=== PATIENT | female | born 1940 | race Caucasian/White ===

== ENCOUNTER 2021-04-25 22:21 | Inpatient (IN) | payer MEDICARE, OTHER ==
[~2021-04-25] VITALS: Ht 165.1 cm; Wt 79.5 kg
[~2021-04-25 22:21] MED LIST: LISI-716; WARF1TAB
[2021-04-26 00:03] LABS: Basophils # (auto) 0.1 10 ^3/uL (0-0.2); Basophils % (auto) 0.5 % (0.0-2.0); Eosinophils # (auto) 0.1 10 ^3/uL (0-0.8); Eosinophils % (auto) 1.1 % (0.0-7.0); Hematocrit 45.9 % (36.0-46.0); Hemoglobin 15.3 g/dL (12.2-16.2); Lymphocytes # (auto) 2.5 10 ^3/uL (0.4-5.4); Lymphocytes % (auto) 21.9 % (10.0-50.0); Mean Corpuscular Hemoglobin 30.5 pg (28.0-32.0); Mean Corpuscular Hgb Conc. 33.4 g/dL (32.0-36.0); Mean Corpuscular Volume 91.4 fL (80.0-100.0); Monocytes # (auto) 0.7 10 ^3/uL (0-1.3); Monocytes % (auto) 6.2 % (0.0-12.0); Neutrophils # (auto) 8.1 10 ^3/uL (1.6-8.6); Neutrophils % (auto) 70.3 % (37.0-80.0); Nucleated Red Blood Cells % 0.1 %; Red Blood Cells 5.02 10^6/uL (4.0-5.20); Red Cell Distribution Width 13.5 % (11.8-14.3); White Blood Cell 11.5 10^3/uL (4.4-10.8)
[2021-04-26 00:13] LABS: Albumin 3.8 g/dL (3.4-5.0); Calcium 8.7 mg/dL (8.5-10.1); Potassium 3.6 mmol/L (3.5-5.1)
[2021-04-26 00:18] LABS: BUN/Creatinine Ratio 25.3; Bilirubin, Total 0.4 mg/dL (0.2-1.0); Total Protein 7.2 g/dL (6.4-8.2)
[2021-04-26 01:36] LABS: INR 2.45 (0.9-1.15)
[2021-04-26] MEDS ORDERED: DEXTROSE (50%) 50ML SYRG IV PRN ×2 (06:15→13:00)
[2021-04-26] MEDS ORDERED: DOCUSATE SOD 100 MG CAP PO PRN ×2 (06:15→13:00)
[2021-04-26] MEDS ORDERED: HYDROcodone-ACET 5/325MG TAB PO PRN ×2 (06:15→13:00)
[2021-04-26] MEDS ORDERED: ACETAMINOPHEN 325 MG TAB PO PRN ×2 (06:15→13:00)
[2021-04-26] MEDS ORDERED: hydrALAZINE HCL 20 MG/ML VL IV PRN (06:15)
[2021-04-26] MEDS ORDERED: ONDANSETRON HCL 4 MG/2 ML VIAL IV PRN ×2 (06:15→13:00)
[2021-04-26] MEDS ORDERED: InsuLIN REG 1unit/0.01ml Soln (100units/ml) SC SCH ×2 (07:00→22:00)
[2021-04-26] MEDS ORDERED: ACCU-CHEK COMFORT CURVE STRIP VI SCH (07:00)
[2021-04-26 07:15] LABS: Basophils # (auto) 0 10 ^3/uL (0-0.2); Basophils % (auto) 0.2 % (0.0-2.0); Eosinophils # (auto) 0 10 ^3/uL (0-0.8); Hemoglobin 13.2 g/dL (12.2-16.2); Lymphocytes % (auto) 7.7 % (10.0-50.0); Mean Corpuscular Hemoglobin 30.5 pg (28.0-32.0); Mean Corpuscular Volume 92.6 fL (80.0-100.0); Monocytes # (auto) 0.5 10 ^3/uL (0-1.3); Neutrophils # (auto) 11.6 10 ^3/uL (1.6-8.6); Neutrophils % (auto) 88.1 % (37.0-80.0); Red Blood Cells 4.32 10^6/uL (4.0-5.20); Red Cell Distribution Width 13.4 % (11.8-14.3); White Blood Cell 13.1 10^3/uL (4.4-10.8)
[2021-04-26 07:30] LABS: Albumin 3.3 g/dL (3.4-5.0); Potassium 4.3 mmol/L (3.5-5.1)
[2021-04-26 07:36] LABS: BUN/Creatinine Ratio 24.1; Bilirubin, Total 0.6 mg/dL (0.2-1.0); Total Protein 6.2 g/dL (6.4-8.2)
[2021-04-26] MEDS ORDERED: MULTIPLE VITAMIN TAB PO SCH (10:00)
[2021-04-26] MEDS: ASCORBIC ACID 500 MG TAB PO SCH ×2 (10:00→21:28)
[2021-04-26] MEDS: ENOXAPARIN SOD 40 MG/0.4 ML SYRINGE SC SCH (10:00)
[2021-04-26] MEDS ORDERED: ZINC SULFATE 220mg CAP or TAB PO SCH (10:00)
[2021-04-26] MEDS: FAMOTIDINE (10MG/ML) 2ML VL IV SCH (10:47)
[2021-04-26] MEDS ORDERED: MORPHINE SULFATE INJECTION 2 MG/ML SYRG IV PRN ×2 (13:00)
[2021-04-26] MEDS ORDERED: NITROGLYCERIN 0.4 MG SL TAB SL PRN (13:00)
[2021-04-26] MEDS ORDERED: HYDROmorphone HCL 2 MG/ML VL IV PRN (13:00)
[2021-04-26 14:31] LABS: Cholesterol 149 mg/dL (< 200)
[2021-04-26 14:34] LABS: HDL Cholesterol 64 mg/dL (40-59); LDL Cholesterol 70 mg/dL (< 100); Triglycerides 107 mg/dL (< 150)
[2021-04-26] MEDS: SOD CHL 0.45% 1,000 ML IV SCH (14:46)
[2021-04-26] MEDS: SODIUM CHLOR 0.9% PF (SALINE LOCK) 10ML VIAL/SYR IV SCH ×2 (14:46→21:29)
[2021-04-26] MEDS: ACCU-CHEK COMFORT CURVE STRIP VI SCH (18:38)
[2021-04-26] MEDS: InsuLIN REG 1unit/0.01ml Soln (100units/ml) SC SCH (21:28)
[2021-04-27] MEDS: InsuLIN REG 1unit/0.01ml Soln (100units/ml) SC SCH ×4 (01:42→18:00)
[2021-04-27 04:06] VITALS: BP 134/86
[2021-04-27] MEDS: SOD CHL 0.45% 1,000 ML IV SCH ×2 (05:40→19:55)
[2021-04-27] MEDS: ACCU-CHEK COMFORT CURVE STRIP VI SCH ×4 (06:01→17:59)
[2021-04-27] MEDS: SODIUM CHLOR 0.9% PF (SALINE LOCK) 10ML VIAL/SYR IV SCH ×3 (06:01→21:42)
[2021-04-27] MEDS ORDERED: DONE1TAB88 PO (06:08)
[2021-04-27] MEDS ORDERED: TRAM50TA2 PO (06:08)
[2021-04-27] MEDS ORDERED: LOVA40TA72 PO (06:08)
[2021-04-27] MEDS ORDERED: AMLO-489 PO (06:08)
[2021-04-27] MEDS ORDERED: MEMA1TAB5 PO (06:08)
[2021-04-27] MEDS ORDERED: LATA0.0019 OP (06:08)
[2021-04-27] MEDS ORDERED: WARF3TAB22 PO (06:08)
[2021-04-27 08:48] LABS: Basophils # (auto) 0 10 ^3/uL (0-0.2); Basophils % (auto) 0.3 % (0.0-2.0); Eosinophils # (auto) 0 10 ^3/uL (0-0.8); Eosinophils % (auto) 0.2 % (0.0-7.0); Hematocrit 37.5 % (36.0-46.0); Hemoglobin 12.4 g/dL (12.2-16.2); Lymphocytes % (auto) 14.6 % (10.0-50.0); Mean Corpuscular Hemoglobin 30.6 pg (28.0-32.0); Mean Corpuscular Volume 92.8 fL (80.0-100.0); Monocytes # (auto) 1.1 10 ^3/uL (0-1.3); Monocytes % (auto) 8.5 % (0.0-12.0); Neutrophils # (auto) 10.3 10 ^3/uL (1.6-8.6); Neutrophils % (auto) 76.4 % (37.0-80.0); Nucleated Red Blood Cells % 0.1 %; Red Blood Cells 4.04 10^6/uL (4.0-5.20); Red Cell Distribution Width 13.7 % (11.8-14.3); White Blood Cell 13.4 10^3/uL (4.4-10.8)
[2021-04-27 08:50] VITALS: BP 135/88
[2021-04-27 09:02] LABS: Potassium 3.8 mmol/L (3.5-5.1)
[2021-04-27 09:12] LABS: BUN/Creatinine Ratio 33.3; Bilirubin, Total 0.7 mg/dL (0.2-1.0); Total Protein 6.2 g/dL (6.4-8.2)
[2021-04-27] MEDS: ENOXAPARIN SOD 40 MG/0.4 ML SYRINGE SC SCH (10:00)
[2021-04-27] MEDS ORDERED: LISINOPRIL 10 MG TAB PO SCH (10:00)
[2021-04-27] MEDS: FAMOTIDINE (10MG/ML) 2ML VL IV SCH (10:42)
[2021-04-27 12:51] VITALS: BP 152/70
[2021-04-27 17:00] VITALS: BP 123/64
[2021-04-27] MEDS: MEMANTINE HCL 5 MG TAB PO SCH (21:42)
[2021-04-27] MEDS: DONEPEZIL HYDROCHLORIDE 5 MG TAB PO SCH (21:42)
[2021-04-27 22:00] VITALS: BP 115/52
[2021-04-28] MEDS: ACCU-CHEK COMFORT CURVE STRIP VI SCH ×4 (00:21→17:37)
[2021-04-28] MEDS: InsuLIN REG 1unit/0.01ml Soln (100units/ml) SC SCH ×4 (00:21→17:37)
[2021-04-28 04:50] VITALS: BP 148/55
[2021-04-28] MEDS: SODIUM CHLOR 0.9% PF (SALINE LOCK) 10ML VIAL/SYR IV SCH ×3 (06:02→21:05)
[2021-04-28 07:53] LABS: Basophils # (auto) 0.3 10 ^3/uL (0-0.2); Basophils % (auto) 2.3 % (0.0-2.0); Eosinophils # (auto) 0.4 10 ^3/uL (0-0.8); Eosinophils % (auto) 3.4 % (0.0-7.0); Hematocrit 32.6 % (36.0-46.0); Hemoglobin 10.8 g/dL (12.2-16.2); Lymphocytes # (auto) 1.9 10 ^3/uL (0.4-5.4); Mean Corpuscular Hemoglobin 30.5 pg (28.0-32.0); Mean Corpuscular Hgb Conc. 33.1 g/dL (32.0-36.0); Mean Corpuscular Volume 92.1 fL (80.0-100.0); Monocytes # (auto) 0.6 10 ^3/uL (0-1.3); Monocytes % (auto) 5.2 % (0.0-12.0); Neutrophils # (auto) 8.6 10 ^3/uL (1.6-8.6); Neutrophils % (auto) 73.1 % (37.0-80.0); Nucleated Red Blood Cells % 0.1 %; Red Blood Cells 3.54 10^6/uL (4.0-5.20); Red Cell Distribution Width 13.6 % (11.8-14.3); White Blood Cell 11.8 10^3/uL (4.4-10.8)
[2021-04-28 08:14] LABS: Albumin 2.7 g/dL (3.4-5.0); Calcium 7.8 mg/dL (8.5-10.1); Potassium 3.9 mmol/L (3.5-5.1)
[2021-04-28 08:18] LABS: BUN/Creatinine Ratio 42.7; Bilirubin, Total 0.9 mg/dL (0.2-1.0); Total Protein 5.6 g/dL (6.4-8.2)
[2021-04-28] MEDS: ENOXAPARIN SOD 40 MG/0.4 ML SYRINGE SC SCH (09:10)
[2021-04-28] MEDS: MEMANTINE HCL 5 MG TAB PO SCH ×2 (09:11→21:07)
[2021-04-28] MEDS: FAMOTIDINE (10MG/ML) 2ML VL IV SCH (09:11)
[2021-04-28] MEDS ORDERED: amLODIPine BESYLATE 5 MG TAB PO SCH (10:00)
[2021-04-28] MEDS: SOD CHL 0.45% 1,000 ML IV SCH (15:00)
[2021-04-28 17:00] VITALS: BP 113/74
[2021-04-28 17:08] VITALS: BP 100/45
[2021-04-28] MEDS: DONEPEZIL HYDROCHLORIDE 5 MG TAB PO SCH (21:07)
== END 2021-04-28 23:15 | disposition home health service (06) | DRG 562 ==
LOC: EDBD 22:21 → ER 22:24 → TELE 04-26 12:49 → TELE-WESTW 04-27 04:06
PROVIDERS: ADMIT Family Medicine; ATTEND Family Medicine
DX: S42.212A Unspecified displaced fracture of surgical neck of left humerus, initial encounter for closed fracture (principal); R65.11 Systemic inflammatory response syndrome (SIRS) of non-infectious origin with acute organ dysfunction; S42.301A Unspecified fracture of shaft of humerus, right arm, initial encounter for closed fracture; D68.9 Coagulation defect, unspecified; F03.90 Unspecified dementia, unspecified severity, without behavioral disturbance, psychotic disturbance, mood disturbance, and anxiety; E11.9 Type 2 diabetes mellitus without complications; E78.5 Hyperlipidemia, unspecified; I10 Essential (primary) hypertension; I48.91 Unspecified atrial fibrillation; T45.515A Adverse effect of anticoagulants, initial encounter; Z20.822 Contact with and (suspected) exposure to COVID-19; S00.31XA Abrasion of nose, initial encounter; E78.00 Pure hypercholesterolemia, unspecified; E03.9 Hypothyroidism, unspecified; W01.0XXA Fall on same level from slipping, tripping and stumbling without subsequent striking against object, initial encounter; Y93.01 Activity, walking, marching and hiking; Y92.098 Other place in other non-institutional residence as the place of occurrence of the external cause; Z79.01 Long term (current) use of anticoagulants; Z88.0 Allergy status to penicillin; Z86.718 Personal history of other venous thrombosis and embolism; Y99.8 Other external cause status
CPT/HCPCS: 36415; 70450; 71045; 72125; 72170; 73060; 80053; 80061; 82962; 83036; 84443; 85025; 85610; 87426; 96374; 96375; 97163; G0378; J1815; J2405; J3490